=== PATIENT | female | born 1950 | race Caucasian/White ===

== ENCOUNTER 2017-03-30 12:33 | Outpatient (CLI) | payer MEDICARE, OTHER, SELFPAY | END 2017-03-30 12:34 | disposition home or self-care (01) | LOC: BICMAMMO 12:33 | PROVIDERS: ATTEND Obstetrics & Gynecology | DX: Z12.31 Encounter for screening mammogram for malignant neoplasm of breast (principal) | CPT/HCPCS: 77063; 77067 ==

== ENCOUNTER 2017-05-04 07:57 | Outpatient (CLI) | payer MEDICARE ==
--- NOTE | 2017-05-04 09:07 | CT ---
CT PULMONARY LUNG SCAN: Date: 05/04/17 INDICATION: Smoker for 40+ years; 66-year-old female. COMPARISON: None. FINDINGS: There is a 7.6 mm subpleural pulmonary nodule within the anterolateral segment of the left lower lobe . There is a 5.0 mm solid subpleural pulmonary nodule within the anterolateral segment of the right low er lobe. There is scattered emphysema. There are calcifications involving the thoracic aorta and coronary arteries. There is a 1.3 cm cyst within the lateral left hepatic lobe. There is an additional suspected 7.0 mm cyst within segment 8 of the right hepatic lob. There is a 1.1 cm adenoma involving the left adrenal gland. There are two separate nonobstructing sto luis carlos within the superior pole of the left kidney measuring 2.0 mm a piece. No acute osseous abnormalit y is evident. There is scattered degenerative change. IMPRESSION: Lung-RADS Category 3 - probably benign findings. Short-term follow-up suggested. A 6 month low dose C T follow-up is recommended. Category S: Emphysema, hepatic cysts, vascular calcifications, left nephrolithiasis, and left adrena l adenoma. POS: [facility]
== END 2017-05-04 07:58 | disposition home or self-care (01) ==
LOC: CT 07:57
PROVIDERS: ATTEND Family Medicine
DX: F17.210 Nicotine dependence, cigarettes, uncomplicated (principal); J43.9 Emphysema, unspecified; K76.89 Other specified diseases of liver; N20.0 Calculus of kidney; D35.02 Benign neoplasm of left adrenal gland; I25.10 Atherosclerotic heart disease of native coronary artery without angina pectoris; I70.0 Atherosclerosis of aorta
CPT/HCPCS: G0297

== ENCOUNTER 2017-05-20 08:42 | Day surgery (SDC) | payer MEDICARE ==
[2017-05-19 15:09] VITALS: BMI 25.7
[~2017-05-20 08:42] MED LIST: Dexamethasone 20 MG/5 ML VIAL ONE; Lidocaine 1% PF 5 ML VIAL ONE; Ondansetron HCl/PF 4 MG/2 ML Vial ONE; PHENYLEPHRINE-NS 100 MCG/ML 10 ML SYRINGE ONE; PROPOFOL 200 MG/20 ML VIAL ONE; Succinylcholine Chloride 20 MG/ML 10 ml SYRINGE FS ONE
[2017-05-20 09:41] LABS: Hemoglobin 14.2 g/dL (12.0-16.0)
[2017-05-20 10:01] LABS: Anion Gap 12 mmol/L (10-20); BUN (Urea Nitrogen) 16 mg/dL (9.8-20.1); Calc. Creatinine Clearance 79 mL/min (70-130); Calcium 9.5 mg/dL (7.8-10.44); Carbon Dioxide 26 mmol/L (23-31); Chloride 104 mmol/L (98-107); Estimated GFR-MDRD 81; Glucose 90 mg/dL (80-115); Sodium 138 mmol/L (136-145)
[2017-05-20] MEDS ORDERED: Fentanyl 250 MCG/5 ML VIAL ONE (10:56)
[2017-05-20] MEDS ORDERED: Propofol 500 MG/50 ML VIAL ONE (10:56)
[2017-05-20] MEDS ORDERED: EPINEPHrine 1 MG/ML AMP ONE (10:57)
[2017-05-20] MEDS ORDERED: Oxymetazoline HCl 0.05% ( 15 ML ) ONE (10:58)
--- NOTE | 2017-05-20 13:51 | OP ---
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 PROCEDURE PERFORMED: Microsuspension laryngoscopy with excision of vocal cord lesions. PROCEDURE IN DETAIL: After the patient was identified, brought to the OR and placed on the table in supine position. The patient was anesthetized and intubated with a Leanne jet ventilating tube. G ood respirations were obtained and the patient was positioned for surgery and operating laryngoscope was placed in the vallecula and the patient was found to be quite anterior. With the 30-degree scope , we were able to visualize the larynx and used a claims coordinator blade on the Xomed shaver to remove the mario ypoid portion of the vocal cord mucosa with care not to injure the ligament. We also made care not t o injure the mucosa in the anterior commissure bilaterally. Lidocaine was then applied after hemosta sis was obtained, topical lidocaine. The patient was awakened, extubated, and taken to recovery room where she remained in stable condition prior to discharge home.
--- NOTE | 2017-05-22 18:31 | EKG ---
Test Reason : PREOP Blood Pressure : / mmHG Vent. Rate : 073 BPM Atrial Rate : 073 BPM P-R Int : 164 ms QRS Dur : 078 ms QT Int : 384 ms P-R-T Axes : 070 038 056 degrees QTc Int : 423 ms Normal sinus rhythm Normal ECG No previous ECGs available Confirmed by DR. Matheus BRADLEY MD (4) on 05/22/2017 6:31:15 PM Referred By: EUGENIO Confirmed By:DR. Matheus BRADLEY MD
== END 2017-05-20 13:50 | disposition home or self-care (01) ==
LOC: SDC 08:42
PROVIDERS: ATTEND Specialist
PROC: 0CBV8ZZ Excision of Left Vocal Cord, Via Natural or Artificial Opening Endoscopic (ICD-10-PCS; principal; 2017-05-20)
PROC: 0CBT8ZZ Excision of Right Vocal Cord, Via Natural or Artificial Opening Endoscopic (ICD-10-PCS; 2017-05-20)
DX: J38.4 Edema of larynx (principal); K21.9 Gastro-esophageal reflux disease without esophagitis; F17.200 Nicotine dependence, unspecified, uncomplicated; Z79.52 Long term (current) use of systemic steroids; Z79.899 Other long term (current) drug therapy
CPT/HCPCS: 36415; 80048; 85014; 85018; 93005; 93010; J0171; J1100; J2001; J2405; J2704; J3010

== ENCOUNTER 2017-07-07 10:35 | Outpatient (CLI) | payer MEDICARE | END 2017-07-07 10:36 | disposition home or self-care (01) | LOC: CTENTCT 10:35 | PROVIDERS: ATTEND Specialist | DX: J32.9 Chronic sinusitis, unspecified (principal) | CPT/HCPCS: 70486 ==

== ENCOUNTER 2017-07-15 11:50 | Day surgery (SDC) | payer MEDICARE ==
[2017-07-14 15:25] VITALS: BMI 26.5
[~2017-07-15 11:50] MED LIST changes: +Glycopyrrolate 0.2 MG/ML 5 ML SYRINGE ONE; -Succinylcholine Chloride 20 MG/ML 10 ml SYRINGE FS ONE
[2017-07-15] MEDS ORDERED: Oxymetazoline HCl 0.05% ( 15 ML ) ONE ×2 (12:58→13:19)
[2017-07-15] MEDS ORDERED: Lidocaine 1% w/Epinephrine 1:200K 30 ML VIAL ONE (12:58)
[2017-07-15 13:22] LABS: Hemoglobin 15.2 g/dL (12.0-16.0)
[2017-07-15 13:46] LABS: Anion Gap 12 mmol/L (10-20); BUN (Urea Nitrogen) 17 mg/dL (9.8-20.1); Calc. Creatinine Clearance 77 mL/min (70-130); Calcium 9.9 mg/dL (7.8-10.44); Carbon Dioxide 27 mmol/L (23-31); Chloride 102 mmol/L (98-107); Estimated GFR-MDRD 76; Glucose 87 mg/dL (80-115); Potassium 4.4 mmol/L (3.5-5.1); Sodium 137 mmol/L (136-145)
[2017-07-15] MEDS ORDERED: Fentanyl 250 MCG/5 ML VIAL ONE (14:59)
[2017-07-15] MEDS ORDERED: Bacitracin Zinc Ointment 30 gm TUBE ONE (15:39)
--- NOTE | 2017-07-15 19:37 | RAD ---
CHEST ONE VIEW 07/15/17 HISTORY: Low O2 saturation. COMPARISON: None. FINDINGS: Lungs are clear. No pneumothorax or effusion. The cardiac silhouette and mediastinal contours are wit hin normal limits. IMPRESSION: No acute intrathoracic abnormality. POS: [facility]
--- NOTE | 2017-07-16 10:37 | OP ---
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 PROCEDURES PERFORMED: 1. Bilateral nasal endoscopy with maxillary antrostomy. 2. Bilateral nasal endoscopy with total ethmoidectomy. 3. Bilateral nasal endoscopy with frontal sinusotomy. 4. Bilateral nasal endoscopy with resection of carlos eduardo bullosa. 5. Bilateral nasal endoscopy with submucosal resection of inferior turbinates. SURGEON: Marco A Kaba M.D. PROCEDURE IN DETAIL: After consent was obtained, the patient was identified, brought to the operatin g room, and placed on the operating room table in the supine position. Consent was obtained, notifyi ng the patient of the possibility of additional infections, bleeding, brain injury, and eye/orbital i njury. The patient was placed on the operating room table, and general endotracheal anesthesia and intravenous access was obtained. The patient was then positioned, prepped and draped for endoscopic sinus surgery. Nasal preparation included trimming nasal vestibular hairs and spraying in topical Af rin. We then placed Afrin topical solution on nasal pledgets and strategically located them intranas ally. The perinasal mucosa was injected with 1% lidocaine with 1:100,000 epinephrine in the submucop erichondrial plane of the septum, lateral nasal wall, and anterior to the uncinate. The patient was then prepped and draped in a sterile fashion and positioned for endoscopic sinus surgery. With the 0-degree endoscope, the patient underwent systematic nasal endoscopy. There were no suspici ous internasal masses or lesions identified. We then focused our attention to the osteomeatal comple x region under the middle turbinate. Maxillary Antrostomy: The uncinate was then identified and the extent of the uncinate was appreciate d by out-fracturing the uncinate with the ball-tip probe. We then used the sickle blade to disarticu late the uncinate from the lateral nasal wall. This was then removed with straight biting and upbiti ng punches with the remaining shrouds of mucosa and bony septum removed with the micro-debrider. The natural os of the maxillary sinus was then identified and enlarged with the maxillary punches and ba ck biting forceps. Total Ethmoidectomy: The anterior face of the ethmoid bulla was entered and with the micro-debrider, dissection continued posteriorly to the ground lamella. The limits of dissection included the inser tion of the middle turbinate, medial orbital wall, and base of skull. We similarly identified the fr ontal recess and removed shrouds of bone and debris in that region to obtain patency into the agger n asi region and frontal recess. We then entered the ground lamella and its anteroinferior aspect and proceeded posteriorly, opening the posterior ethmoid air-cell system. Again, the limits of dissectio n included the base of skull and medial orbital wall. Frontal Sinusotomy: The anterior face of the ethmoid bulla was entered and with the micro-debrider, dissection continued posteriorly to the ground lamella. The limits of dissection included the insert ion of the middle turbinate, medial orbital wall, and base of skull. We similarly identified the fro ntal recess and removed shrouds of bone and debris in that region to obtain patency into the agger na si region and frontal recess. We then entered the ground lamella and its anteroinferior aspect and p roceeded posteriorly, opening the posterior ethmoid air-cell system. Again, the limits of dissection included the base of skull and medial orbital wall. Carlos Eduardo Bullosa: The carlos eduardo bullosa was identified and entered with a sickle blade. The lateral aspe ct of the carlos eduardo bullosa was meticulously resected while leaving the medial most aspect to form the n ew middle turbinate. Attention was made not to violate the mucosa. The straight biting punches and micro-debrider were used to remove shrouds of mucosa and bony debris. Outfracture of the Inferior Turbinates: The inferior turbinates were visualized under endoscopic vis ualization and outfractured with the elevator. The inferolateral edge of the inferior turbinate was then cauterized along its length with the suction cautery without difficulty. Outfracture & Cautery of the Inferior Turbinates: The inferior turbinates were visualized with a 0-d egree endoscope and outfractured with a William elevator. The inferior medial aspect was cauterized wi th the electrocautery. Hemostasis was obtained. After adequate airway was established, we turned ou r attention to the contralateral side and used a similar procedure. Again, a Crabtree elevator was used to outfracture inferior turbinates under endoscopic visualization. With a suction cautery, the free inferior medial aspect was cauterized under direct visualization along the length of the inferior tu rbinate. At this point, we then turned our attention to the contralateral side and proceeded with endoscopic s inus surgery. With the 0-degree endoscope, the patient underwent systematic nasal endoscopy. There were no suspici ous internasal masses or lesions identified. We then focused our attention to the osteomeatal comple x region under the middle turbinate. Maxillary Antrostomy: The uncinate was then identified and the extent of the uncinate was appreciate d by out-fracturing the uncinate with the ball-tip probe. We then used the sickle blade to disarticu late the uncinate from the lateral nasal wall. This was then removed with straight biting and upbiti ng punches with the remaining shrouds of mucosa and bony septum removed with the micro-debrider. The natural os of the maxillary sinus was then identified and enlarged with the maxillary punches and ba ck biting forceps. Total Ethmoidectomy: The anterior face of the ethmoid bulla was entered and with the micro-debrider, dissection continued posteriorly to the ground lamella. The limits of dissection included the inser tion of the middle turbinate, medial orbital wall, and base of skull. We similarly identified the fr ontal recess and removed shrouds of bone and debris in that region to obtain patency into the agger n asi region and frontal recess. We then entered the ground lamella and its anteroinferior aspect and proceeded posteriorly, opening the posterior ethmoid air-cell system. Again, the limits of dissectio n included the base of skull and medial orbital wall. Frontal Sinusotomy: The anterior face of the ethmoid bulla was entered and with the micro-debrider, dissection continued posteriorly to the ground lamella. The limits of dissection included the insert ion of the middle turbinate, medial orbital wall, and base of skull. We similarly identified the fro ntal recess and removed shrouds of bone and debris in that region to obtain patency into the agger na si region and frontal recess. We then entered the ground lamella and its anteroinferior aspect and p roceeded posteriorly, opening the posterior ethmoid air-cell system. Again, the limits of dissection included the base of skull and medial orbital wall. Carlos Eduardo Bullosa: The carlos eduardo bullosa was identified and entered with a sickle blade. The lateral aspe ct of the carlos eduardo bullosa was meticulously resected while leaving the medial most aspect to form the n ew middle turbinate. Attention was made not to violate the mucosa. The straight biting punches and micro-debrider were used to remove shrouds of mucosa and bony debris. Outfracture of the Inferior Turbinates: The inferior turbinates were visualized under endoscopic vis ualization and outfractured with the elevator. The inferolateral edge of the inferior turbinate was then cauterized along its length with the suction cautery without difficulty. Outfracture & Cautery of the Inferior Turbinates: The inferior turbinates were visualized with a 0-d egree endoscope and outfractured with a William elevator. The inferior medial aspect was cauterized wi th the electrocautery. Hemostasis was obtained. After adequate airway was established, we turned ou r attention to the contralateral side and used a similar procedure. Again, a William elevator was used to outfracture inferior turbinates under endoscopic visualization. With a suction cautery, the free inferior medial aspect was cauterized under direct visualization along the length of the inferior tu rbinate. At the completion of the case, Rice keel splints were placed in the ethmoid cavities after the ethmoi dectomy. There were no complications. The patient tolerated the procedure well and was discharged t o the recovery room in stable condition prior to return to the preoperative Day Stay with [facility]. Prescriptions for pain medication and antibiotics were provided. The patient received intramuscular Depo-Medrol during the case.
--- NOTE | 2017-07-19 18:35 | EKG ---
Test Reason : PREOP Blood Pressure : / mmHG Vent. Rate : 074 BPM Atrial Rate : 074 BPM P-R Int : 136 ms QRS Dur : 076 ms QT Int : 366 ms P-R-T Axes : 092 029 053 degrees QTc Int : 406 ms Normal sinus rhythm Normal ECG When compared with ECG of 20-MAY-2017 10:35, No significant change was found Confirmed by LUISA PAULA (2) on 07/19/2017 6:35:42 PM Referred By: EUGENIO Confirmed By:LUISA PAULA
== END 2017-07-15 17:55 | disposition home or self-care (01) ==
LOC: SDC 11:50
PROVIDERS: ATTEND Specialist
PROC: 099R8ZZ Drainage of Left Maxillary Sinus, Via Natural or Artificial Opening Endoscopic (ICD-10-PCS; principal; 2017-07-15)
PROC: 099Q8ZZ Drainage of Right Maxillary Sinus, Via Natural or Artificial Opening Endoscopic (ICD-10-PCS; 2017-07-15)
PROC: 09TV8ZZ Resection of Left Ethmoid Sinus, Via Natural or Artificial Opening Endoscopic (ICD-10-PCS; 2017-07-15)
PROC: 09TU8ZZ Resection of Right Ethmoid Sinus, Via Natural or Artificial Opening Endoscopic (ICD-10-PCS; 2017-07-15)
PROC: 099T8ZZ Drainage of Left Frontal Sinus, Via Natural or Artificial Opening Endoscopic (ICD-10-PCS; 2017-07-15)
PROC: 099S8ZZ Drainage of Right Frontal Sinus, Via Natural or Artificial Opening Endoscopic (ICD-10-PCS; 2017-07-15)
PROC: 09TL7ZZ Resection of Nasal Turbinate, Via Natural or Artificial Opening (ICD-10-PCS; 2017-07-15)
PROC: 09TL8ZZ Resection of Nasal Turbinate, Via Natural or Artificial Opening Endoscopic (ICD-10-PCS; 2017-07-15)
DX: J32.9 Chronic sinusitis, unspecified (principal); J34.3 Hypertrophy of nasal turbinates; J34.89 Other specified disorders of nose and nasal sinuses; F17.210 Nicotine dependence, cigarettes, uncomplicated; K21.9 Gastro-esophageal reflux disease without esophagitis
CPT/HCPCS: 36415; 71045; 80048; 85014; 85018; 87070; 87205; 93005; 93010; J1100; J2001; J2405; J2704; J3010

== ENCOUNTER 2017-11-04 10:06 | Outpatient (CLI) | payer MEDICARE ==
--- NOTE | 2017-11-04 13:54 | CT ---
CT CHEST NONCONTRAST PULMONARY LUNG SCAN LOW DOSE: HISTORY: Lung nodule. Followup. COMPARISON: 05/04/2017 FINDINGS: The lungs remain hyperinflated. The 0.5 cm, noncalcified, subpleural nodule at the right lateral lorraine g base, right lower lobe, is unchanged in appearance. The 0.7 cm nodule abutting the pleura at the l eft lateral costophrenic angle is also stable. No new nodules are evident. A focal area of intersti tial thickening at the central aspect, right lower lobe, is stable. No evidence of pneumothorax. Within the partially visualized upper abdomen, calcifications of the superior pole left kidney are ag ain demonstrated. Calcification within the arterial structures. IMPRESSION: Lung-RADS category 3-Probably benign findings. Please consider continued six month followup to evaluate for stability. Category S-Atherosclerosis. Emphysema. Left renal calcifications. POS: [facility]
== END 2017-11-04 10:07 | disposition home or self-care (01) ==
LOC: CT 10:06
PROVIDERS: ATTEND Family Medicine
DX: F17.210 Nicotine dependence, cigarettes, uncomplicated (principal); R93.8 Abnormal findings on diagnostic imaging of other specified body structures; I70.90 Unspecified atherosclerosis; J43.9 Emphysema, unspecified; N28.89 Other specified disorders of kidney and ureter
CPT/HCPCS: G0297

== ENCOUNTER 2018-05-23 11:59 | Outpatient (CLI) | payer MEDICARE ==
--- NOTE | 2018-05-23 14:47 | CT ---
CT CHEST WITHOUT CONTRAST: Date: 05/23/18 Multiple axial tomograms obtained through the chest without IV enhancement. A low dose screening prot ocol was followed. INDICATION: Follow-up pulmonary nodules. Comparison made to CT chest dated 11/04/17. FINDINGS: On the prior exam, a focal area of interstitial thickening in the central right lower lobe was descri bed. That focus of density is again seen, although there is a more nodular appearance today. There is a more well-defined nodular area measuring approximately 6.0 mm at this site with some surrounding g round-glass opacity, which is more focal than on the prior study. Changes at this location are concer willi. The small pleural based nodule in the lateral right lower lung measuring 5.0 mm is stable. The pleural based nodule in the left posterior gutter measuring 6.0 mm is stable. Mild stranding in both posterior lung bases, stable. Nonspecific mediastinal lymph nodes, unchanged. Images through upper abdomen unremarkable. Osseous structures are stable in appearance. IMPRESSION: 1. Change in appearance of a focal ground-glass opacity in the mid right lobe when compared to the p rior exam of 11/04/17. Change since prior study at this location is concerning. Consider further eval uation with PET scan and continued close follow-up CT. 2. There are other scattered nodular densities described above which are stable. 3. Lung-RADS Category 3. POS: [facility]
== END 2018-05-23 12:00 | disposition home or self-care (01) ==
LOC: CT 11:59
PROVIDERS: ATTEND Family Medicine
DX: F17.210 Nicotine dependence, cigarettes, uncomplicated (principal); R91.8 Other nonspecific abnormal finding of lung field
CPT/HCPCS: G0297

== ENCOUNTER 2018-06-14 10:39 | Outpatient (CLI) | payer MEDICARE ==
--- NOTE | 2018-06-14 11:20 | MMO ---
Bilateral MAMMO Bilat Screen [facility]. CLINICAL HISTORY: Patient is 67 years old and is seen for screening. The patient has no family history of breast cancer. The patient has no personal history of cancer. VIEWS: The views performed were: bilateral craniocaudal with tomosynthesis and bilateral mediolateral oblique with tomosynthesis. FILMS COMPARED: The present examination has been compared to prior imaging studies performed at [facility] on 11/25/1995, 11/23/1997 and 01/12/2001, and at [facility] on 06/16/2004, 08/10/2005, 12/12/2007, 12/31/2009, 02/13/2011, 09/18/2014 and 03/30/2017. MAMMOGRAM FINDINGS: There are scattered fibroglandular densities. There are stable benign appearing calcifications seen in both breasts. There are no suspicious masses, suspicious calcifications, or new areas of architectural distortion. IMPRESSION: THERE IS NO MAMMOGRAPHIC EVIDENCE OF MALIGNANCY. A ROUTINE FOLLOW-UP MAMMOGRAM IN 1 YEAR IS RECOMMENDED. THE RESULTS OF THIS EXAM WERE SENT TO THE PATIENT. ACR BI-RADS Category 2 - Benign finding MAMMOGRAPHY NOTE: 1. A negative mammogram report should not delay a biopsy if a dominant of clinically suspicious mass is present. 2. Approximately 10% to 15% of breast cancers are not detected by mammography. 3. Adenosis and dense breasts may obscure an underlying neoplasm.
--- NOTE | 2018-06-14 11:55 | BD ---
Exam: DEXA Bone Density History: Post menopausal Lumbar Spine: BMD (g/cm2) L1 0.826 T-Score: -1.5 L2 0.820 T-Score: -1.9 L3 0.911 T-Score: -1.6 L4 0.921 T-Score: -1.3 L1-L4 0.874 T-Score: -1.6 Femoral Neck: 0.657 T-Score: -1.7 Total Femur: 0.858 T-Score: -0.7 Impression: 1. Osteopenia lumbar spine and left femoral neck. 2. 10-year fracture risk of major osteoporotic fracture 10% and a hip fracture of 1.5%. These fractur e probabilities are calculated for an untreated patient. POS: [facility]
== END 2018-06-14 10:40 | disposition home or self-care (01) ==
LOC: BICMAMMO 10:39
PROVIDERS: ATTEND Family Medicine
DX: Z12.31 Encounter for screening mammogram for malignant neoplasm of breast (principal); Z78.0 Asymptomatic menopausal state; M85.89 Other specified disorders of bone density and structure, multiple sites
CPT/HCPCS: 77063; 77067; 77080

== ENCOUNTER 2018-11-29 09:47 | Outpatient (CLI) | payer MEDICARE ==
--- NOTE | 2018-11-29 10:27 | CT ---
EXAM: CT Chest WO Con PROVIDED CLINICAL HISTORY: Pulmonary nodule COMPARISON: 05/04/2017, 11/04/2017, 05/23/2018 FINDINGS: The heart, pericardium and great vessels are suboptimally evaluated in the absence of IV contrast mat erial but demonstrate a stable unenhanced CT appearance to include vascular calcification and coronary calcium. There is no evidence for thoracic lymph node enlargement with limitations due to lack of IV contrast material. There has been interval enlargement of the previously described superior segment right lower lobe pul monary nodule, now demonstrating a spiculated appearance and measuring about 1 cm in average axial dimension. This measures about 1.1 cm in craniocaudal dimension. There is an additional, more subtle area of nodularity immediately inferior to the spiculated nodule within the superior segment of the right lower lobe. This is inseparable from the adjacent bronchovascular structures but measures at least 6.5 mm. No additional suspicious pulmonary nodule is evident. Stable subpleural nodular densities. The airway appears patent and of normal caliber. No pleural fluid or pneumothorax apparent. The visua lized portions of the upper abdomen demonstrate a stable unenhanced CT appearance. The osseous structures demonstrate no concerning lytic or blastic lesions. IMPRESSION: Interval enlargement of superior segment right lower lobe pulmonary nodules, the more cranial of whic h is associated with spiculation. These are highly suspicious for malignancy.
== END 2018-11-29 09:48 | disposition home or self-care (01) ==
LOC: BICCT 09:47
PROVIDERS: ATTEND Internal Medicine Critical Care Medicine
DX: R91.1 Solitary pulmonary nodule (principal); R91.8 Other nonspecific abnormal finding of lung field
CPT/HCPCS: 71250

== ENCOUNTER 2018-12-08 11:58 | Outpatient (CLI) | payer MEDICARE ==
--- NOTE | 2018-12-08 15:36 | PET ---
PET SCAN WITH CT ATTENUATION CORRECTION: HISTORY: Solitary pulmonary nodule. COMPARISON: None. CORRELATION: Chest CT dated 11/29/18. TECHNIQUE: PET scanning with CT attenuation correction is performed from the base of the brain to the proximal t highs following the intravenous administration of 11.3 mCi F18-FDG. FINDINGS: HEAD/NECK: No abnormal FDG localization. CHEST: No abnormal FDG localization in the mediastinum. There is no evidence of significant FDG avidity with regards to the nodule in the superior segment of the right lower lobe. Maximum SUV is 1.2. CT used f or attenuation correction does not demonstrate any other suspicious masses. 4 mm pleural based nodule noted in the right hemithorax is not hypermetabolic. This nodule is below the imaging threshold crit eria for PET imaging. ABDOMEN/PELVIS: No abnormal FDG localization. OSSEOUS STRUCTURES: No abnormal FDG localization. IMPRESSION: No evidence of FDG avidity with regards to the nodule noted in the superior segment of the right lowe r lobe. Maximum SUV is within normal limits. As a conservative measure, follow-up imaging in 6-12 mon ths is recommended. POS: [facility]
--- NOTE | 2018-12-12 09:27 | PFT ---
PATIENT HISTORY: HEIGHT: 63 in WEIGHT: 160 lbs SMOKER: yes HOW LON yrs PACKS PER DAY: 1 PRODUCTIVE COUGH: no LUNG DISEASE: yes PHYSICIAN INTERPRETATION FINAL REPORT: Patient had good effort and good cooperation. FVC 2.15 (74%), FEV1 1.05 (47%), FEV1/FVC 0.51. RV 2.54 (127%), TLC 5.92 (121%) DIFFUSION 4.43 (20%) There is a reduction to both the FEV1 and FVC. The ratio is consistent with obstructive air flow limitation. There is no significant response following the administration of a bronchodilator. Residual Volume and Total Lung Capacity are both elevated. The diffusion capacity is severely impaired. IMPRESSION: Overall, these pulmonary function studies are most consistent with severe obstructive lung disease that is irreversible, air trapping, hyper-expansion, and severe reduction in gas exchange. Clinical correlation should be considered. Trimming Caser: FAITH Master Fisher: FAITH LOPEZ
== END 2018-12-08 11:59 | disposition home or self-care (01) ==
LOC: PET 11:58 → CP 11:59
PROVIDERS: ATTEND Internal Medicine Critical Care Medicine
DX: J44.9 Chronic obstructive pulmonary disease, unspecified (principal); R91.1 Solitary pulmonary nodule
CPT/HCPCS: 78815; 94060; 94727; 94729; A9552

== ENCOUNTER 2019-10-19 09:39 | Outpatient (CLI) | payer MEDICARE ==
--- NOTE | 2019-10-19 13:25 | PET ---
PET CT: HISTORY: 68-year-old female with solitary pulmonary nodule. TECHNIQUE: PET scanning with CT attenuation correction was performed from the base of the brain through the prox imal thighs following the intravenous administration of 10.4 mCi F18-FDG. COMPARISON: PET CT dated 12/08/2018. CORRELATION: CT chest dated 10/06/2019. FINDINGS: There is hypermetabolic activity in the 2.0 cm parenchymal lung nodule in the superior segment of the right lower lobe with a SUV of 5.4. No maggie hypermetabolism is seen at the neck, mediastinum, hilar regions, axilla, abdomen, or pelvis. No hypermetabolic liver, adrenal, or skeletal lesions are seen. There is physiologic activity in the GI and tracts, heart, and the visualized portions of the brai n. The CT scan used for attenuation correction demonstrates no evidence of pleural effusions or ascites. There is a cyst in the left lobe of the liver and colonic diverticulosis. IMPRESSION: Findings are highly suspicious for right lower lobe lung malignancy. No evidence of metastatic diseas e. POS: [facility]
[2019-10-20 13:52] LABS: SARS-CoV-2 MS2 Positive; SARS-CoV-2 N Gene Negative; SARS-CoV-2 S Gene Negative; SARS-CoV-2 by NAA Not Detected (NotDetected); SARS-CoV-2 orf1ab Negative
== END 2019-10-19 09:40 | disposition home or self-care (01) ==
LOC: PET 09:39
PROVIDERS: ATTEND Internal Medicine Critical Care Medicine
DX: R91.1 Solitary pulmonary nodule (principal); Z20.828 Contact with and (suspected) exposure to other viral communicable diseases
CPT/HCPCS: 78815; A9552; U0003; 87635

== ENCOUNTER 2019-11-01 12:45 | Outpatient (CLI) | payer MEDICARE ==
--- NOTE | 2019-11-01 16:15 | MMO ---
Bilateral MAMMO Bilat Screen [facility]. CLINICAL HISTORY: Patient is 68 years old and is seen for screening. The patient has no family history of breast cancer. The patient has no personal history of cancer. VIEWS: The views performed were: bilateral craniocaudal with tomosynthesis and bilateral mediolateral oblique with tomosynthesis. FILMS COMPARED: The present examination has been compared to prior imaging studies performed at [facility] on 02/13/2011, 09/18/2014, 03/30/2017 and 06/14/2018. This study has been interpreted with the assistance of computer-aided detection. MAMMOGRAM FINDINGS: There are scattered fibroglandular densities. Benign calcifications are noted bilaterally. There are no suspicious masses, suspicious calcifications, or new areas of architectural distortion. IMPRESSION: THERE IS NO MAMMOGRAPHIC EVIDENCE OF MALIGNANCY. A ROUTINE FOLLOW-UP MAMMOGRAM IN 1 YEAR IS RECOMMENDED. THE RESULTS OF THIS EXAM WERE SENT TO THE PATIENT. ACR BI-RADS Category 2 - Benign finding MAMMOGRAPHY NOTE: 1. A negative mammogram report should not delay a biopsy if a dominant of clinically suspicious mass is present. 2. Approximately 10% to 15% of breast cancers are not detected by mammography. 3. Adenosis and dense breasts may obscure an underlying neoplasm. Reported by: WALT CRUZ MD Electonically Signed: [id number]
== END 2019-11-01 12:46 | disposition home or self-care (01) ==
LOC: BICMAMMO 12:45
PROVIDERS: ATTEND Family Medicine
DX: Z12.31 Encounter for screening mammogram for malignant neoplasm of breast (principal)
CPT/HCPCS: 77063; 77067

== ENCOUNTER 2019-12-12 11:52 | Outpatient (CLI) | payer MEDICARE ==
--- NOTE | 2019-12-12 12:11 | RAD ---
XR Chest Pa Lat STANDARD HISTORY: Malignant neoplasm of the lower right bronchus COMPARISON: 11/27/2019 FINDINGS: The heart size normal. The aorta is tortuous. No lobar consolidation, pneumothoraces or ple ural effusions are seen. There is suggestion of scarring in the right lower lung in the region of the previously placed chest tube. IMPRESSION: No radiographic evidence of acute cardiopulmonary process.
== END 2019-12-12 11:53 | disposition home or self-care (01) ==
LOC: RAD 11:52
PROVIDERS: ATTEND Thoracic Surgery (Cardiothoracic Vascular Surgery)
DX: C34.31 Malignant neoplasm of lower lobe, right bronchus or lung (principal)
CPT/HCPCS: 71046

== ENCOUNTER 2020-11-18 14:23 | Outpatient (CLI) | payer MEDICARE | END 2020-11-18 14:24 | disposition home or self-care (01) | LOC: BICMAMMO 14:23 | PROVIDERS: ATTEND Family Medicine | DX: Z12.31 Encounter for screening mammogram for malignant neoplasm of breast (principal); Z13.820 Encounter for screening for osteoporosis; M85.89 Other specified disorders of bone density and structure, multiple sites; Z78.0 Asymptomatic menopausal state | CPT/HCPCS: 77063; 77067; 77080 ==

== ENCOUNTER 2021-08-27 11:08 | Outpatient (CLI) | payer MEDICARE | END 2021-08-27 11:09 | disposition home or self-care (01) | LOC: RAD 11:08 | PROVIDERS: ATTEND Internal Medicine Critical Care Medicine | DX: R06.00 Dyspnea, unspecified (principal) | CPT/HCPCS: 71046 ==

== ENCOUNTER 2021-11-25 12:55 | Outpatient (CLI) | payer MEDICARE | END 2021-11-25 12:56 | disposition home or self-care (01) | LOC: BICMAMMO 12:55 | PROVIDERS: ATTEND Family Medicine | DX: Z12.31 Encounter for screening mammogram for malignant neoplasm of breast (principal) | CPT/HCPCS: 77063; 77067 ==

== ENCOUNTER 2024-03-15 12:44 | Outpatient (CLI) | payer MEDICARE | END 2024-03-15 12:45 | disposition home or self-care (01) | LOC: BICMAMMO 12:44 | PROVIDERS: ATTEND Family Medicine | DX: Z12.31 Encounter for screening mammogram for malignant neoplasm of breast (principal); M85.89 Other specified disorders of bone density and structure, multiple sites | CPT/HCPCS: 77063; 77067; 77080 ==

== ENCOUNTER 2024-04-07 11:16 | Outpatient (CLI) | payer MEDICARE | END 2024-04-07 11:17 | disposition home or self-care (01) | LOC: BICRAD 11:16 | PROVIDERS: ATTEND Physician Assistant | DX: R06.02 Shortness of breath (principal) | CPT/HCPCS: 71046 ==